=== PATIENT | male | born 1990 | race Caucasian/White ===

== ENCOUNTER 2016-07-09 15:26 | Emergency (ER) | payer SELFPAY ==
[~2016-07-09 15:26] MED LIST: AUGMENTIN 875-1 EAC2 PO; CIPRO500 M2 PO; CLARITIN10 M6 PO; CODEINE-GUAIFE473 ML PO; EXCEDRIN EXTRA1 EACH PO; NYQUIL D COLD295 ML PO; PENICILLIN V P500 M1 PO; TRAMADOL HCL50 M2 PO
[2016-07-09 16:52] LABS: BASO % 0.2 % (0-2); EOS % 1.3 % (0-7); EOSINOPHIL ABSOLUTE COUNT 0.1 tho/cmm (0.0-0.7); HCT-HEMATOCRIT 42.4 % (36.0-53.5); IMMATURE GRANULOCYTES ABSOLUTE 0.03 tho/cmm (0-0.03); IMMATURE GRANULOCYTES PERCENT 0.3 % (0-0.3); LYMPH % 27.4 % (20-45); LYMPH ABSOLUTE COUNT 2.5 tho/cmm (0.8-4.5); MCH (MEAN CORPUSCULAR HGB) 27.4 pg (28.0-32.0); MCHC MEAN CORPUSCULAR HGB CONC 35.4 % (32.0-36.0); MCV (MEAN CELL VOLUME) 77.5 fl (82.0-96.0); MEAN PLATELET VOLUME 9.2 cmc (9.4-12.4); MONO % 7.7 % (0-12); MONOCYTE ABSOLUTE COUNT 0.7 tho/cmm (0.0-1.2); NEUTROPHIL ABSOLUTE COUNT 5.7 tho/cmm (1.6-8.0); NEUTROPHIL-AUTOMATED 5.7 tho/cmm (1.6-8.0); NEUTROPHILS % 63.1 % (40-80); PLATELET COUNT 239 tho/cmm (150-450); RED BLOOD COUNT 5.47 mil/cmm (4.40-5.70)
[2016-07-09 17:00] LABS: ANION GAP 13 mmol/L (0-20); BLOOD UREA NITROGEN 10 mg/dl (6-24); CALCIUM 8.8 mg/dl (8.5-10.5); CARBON DIOXIDE-VENOUS 25 mmol/L (22-32); CHLORIDE 110 mmol/l (96-110); CREATININE 0.88 mg/dl (0.60-1.30); GLUCOSE 115 mg/dL (70-110); POTASSIUM 3.6 mmol/L (3.7-5.1); SODIUM 144 mmol/L (135-145); eGFR VALUE FOR BLACK >90 mL/Min
[2016-07-09] MEDS ORDERED: ZITHROMAX250 M1 PO (17:48)
== END 2016-07-09 18:02 ==
LOC: EDMED 15:26
PROVIDERS: Physician Assistant
DX: R05 Cough (principal); R09.81 Nasal congestion; R06.02 Shortness of breath; Z87.891 Personal history of nicotine dependence